=== PATIENT | male | born 1955 | race Caucasian/White ===

== ENCOUNTER 2017-06-24 18:03 | Emergency (ER) | payer SELFPAY ==
[~2017-06-24] VITALS: Ht 175.3 cm; Wt 75.0 kg
[~2017-06-24 18:03] MED LIST: Z.0.NO CURRENT MEDS
[2017-06-24 18:26] VITALS: BP 154/97; PULSE 62; RESP 12; TEMP 98.7; O2SAT 96
--- NOTE | 2017-06-24 18:50 | PD ---
HPI Chief Complaint: Cold / Flu Symptoms Time Seen by Provider: 18:50 Travel History International Travel<30 days: No Contact w/Intl Traveler<30days: No Traveled to known affect area: No History of Present Illness HPI 62-year-old male came to the emergency room with history of body wide aching and cough. Patient says he thinks he has pneumonia. Patient is homeless and apparently has been sleeping outside and started getting sick. She take it anymore and hence came here today. Vital signs are relatively stable as done in triage. Patient appears to be in moderate distress post answering questions appropriately. He says the pain is everywhere and when he coughs he brings out yellowish colored sputum that is small in quantity. He says the sputum looks like pus. Patient has not had any alcohol in past 1 week. He is a smoker. He appears to be disheveled and poor hygiene. He says he vomited this morning but since then he has been drinking and kept fluids down. [facility] Past Medical History Narrative Medical List of his past medical, surgical, social and family history is reviewed from the nursing note. Social History Alcohol Use: No Tobacco Use: Yes (1 PPD) Substance Use: No Allergies-Medications (Allergen,Severity, Reaction): Coded Allergies: No Known Allergies (Verified Allergy, Mild, 08/15/07) Comments No known drug allergies. Reported Meds & Prescriptions Reported Meds & Active Scripts Active Amoxicillin 500 Mg Cap 500 Mg PO BID 10 Days Reported No Current Meds (Miscellaneous Medication) Misc Narrative Medication List of his home medications reviewed from the nursing note. Review of Systems Except as stated in HPI: all other systems reviewed are Neg Respiratory: Positive: Cough Gastrointestinal: Positive: Vomiting Musculoskeletal: Positive: Myalgias Physical Exam Narrative GENERAL: Awake, alert, moderate distress SKIN: Focused skin assessment warm/dry. Poor skin hygiene, disheveled HEAD: Atraumatic. Normocephalic. EYES: Pupils equal and round. No scleral icterus. No injection or drainage. ENT: No nasal bleeding or discharge. Mucous membranes pink and moist. NECK: Trachea midline. No JVD. CARDIOVASCULAR: Regular rate and rhythm. No murmur appreciated. RESPIRATORY: No accessory muscle use. Clear to auscultation. Breath sounds equal bilaterally. GASTROINTESTINAL: Abdomen soft, non-tender, nondistended. Hepatic and splenic margins not palpable. MUSCULOSKELETAL: No obvious deformities. No clubbing. No cyanosis. No edema. NEUROLOGICAL: Awake and alert. No obvious cranial nerve deficits. Motor grossly within normal limits. Normal speech. PSYCHIATRIC: Appropriate mood and affect; insight and judgment normal. Data Data Last Documented VS Vital Signs Date Time Temp Pulse Resp B/P (MAP) Pulse Ox O2 Delivery O2 Flow Rate FiO2 06/24/17 18:26 98.7 62 12 154/97 (116) 96 Orders Orders Complete Blood Count With Diff (06/24/17 18:53) Comprehensive Metabolic Panel (06/24/17 18:53) Creatine Kinase (Cpk) (06/24/17 18:53) Influenzae A/B Antigen (06/24/17 18:53) Chest, Pa & Lat (06/24/17 ) CKMB (06/24/17 18:20) CKMB% (06/24/17 18:20) Sodium Chlor 0.9% 1000 Ml Inj (Ns 1000 M (06/24/17 20:30) Azithromycin Inj (Zithromax Inj) (06/24/17 20:30) Ed Discharge Order (06/24/17 21:13) Labs Laboratory Tests Test 06/24/17 18:20 White Blood Count 5.9 TH/MM3 Red Blood Count 4.77 MIL/MM3 Hemoglobin 16.6 GM/DL Hematocrit 46.7 % Mean Corpuscular Volume 98.0 FL Mean Corpuscular Hemoglobin 34.8 PG Mean Corpuscular Hemoglobin Concent 35.5 % Red Cell Distribution Width 11.6 % Platelet Count 121 TH/MM3 Mean Platelet Volume 8.5 FL Neutrophils (%) (Auto) 64.6 % Lymphocytes (%) (Auto) 14.7 % Monocytes (%) (Auto) 17.5 % Eosinophils (%) (Auto) 2.6 % Basophils (%) (Auto) 0.6 % Neutrophils # (Auto) 3.8 TH/MM3 Lymphocytes # (Auto) 0.9 TH/MM3 Monocytes # (Auto) 1.0 TH/MM3 Eosinophils # (Auto) 0.2 TH/MM3 Basophils # (Auto) 0.0 TH/MM3 CBC Comment DIFF FINAL Differential Comment Blood Urea Nitrogen 5 MG/DL Creatinine 0.78 MG/DL Random Glucose 92 MG/DL Total Protein 8.5 GM/DL Albumin 3.5 GM/DL Calcium Level 8.6 MG/DL Alkaline Phosphatase 52 U/L Aspartate Amino Transf (AST/SGOT) 67 U/L Alanine Aminotransferase (ALT/SGPT) 42 U/L Total Bilirubin 0.7 MG/DL Sodium Level 129 MEQ/L Potassium Level 3.7 MEQ/L Chloride Level 93 MEQ/L Carbon Dioxide Level 28.6 MEQ/L Anion Gap 7 MEQ/L Estimat Glomerular Filtration Rate 102 ML/MIN Total Creatine Kinase 476 U/L Creatine Kinase MB 2.3 NG/ML Creatine Kinase MB % 0.5 % MDM Medical Decision Making Medical Screen Exam Complete: Yes Emergency Medical Condition: Yes Medical Record Reviewed: Yes Differential Diagnosis Viral illness, pneumonia, influenza Narrative Course 7:21 PM awaiting for the blood test results and the influenza. I've ordered a chest x-ray as well. 9:10 PM blood test results of back and patient has mild hyponatremia and somewhat elevated CPK. He is getting a liter of IV fluid bolus. He was given by mouth challenge which she has tolerated well. Chest x-ray suggestive of bronchitis. I've given him a dose of IV Zithromax and I will discharge him home on antibiotic prescription. Patient being homeless and no insurance I'll discharge him home on amoxicillin prescription since that's free in [facility] pharmacy. Procedures EKG Prior to Arrival: No Diagnosis Primary Impression: Bronchitis Additional Impression: Hyponatremia Referrals: Primary Care Physician Additional Instructions: Please return to the ER if the condition worsens or any other new concerns. Take the medication as per the prescription direction. You should not smoke cigarettes or anything else since it would make your lung condition worse. Med/Other Pt SpecificInfo: Prescription(s) given Scripts Amoxicillin (Amoxicillin) 500 Mg Cap 500 MG PO BID for Infection for 10 Days, #20 CAP 0 Refills Prov: Umm Bocanegra MD 06/24/17 Disposition: 01 DISCHARGE HOME Condition: Stable Umm Bocanegra MD Jun 24, 2017 18:50
[2017-06-24 19:47] LABS: AUTOMATED NEUTROPHIL # 3.8 TH/MM3 (1.8-7.7); BASOPHIL % 0.6 % (0.0-2.0); EOSINOPHIL # 0.2 TH/MM3 (0-0.4); EOSINOPHIL % 2.6 % (0.0-4.0); HEMATOCRIT 46.7 % (39.0-51.0); HEMOGLOBIN 16.6 GM/DL (13.0-17.0); LYMPH % 14.7 % (9.0-44.0); LYMPHOCYTE # 0.9 TH/MM3 (1.0-4.8); MEAN CORPUSCULAR HEMOGLOBIN 34.8 PG (27.0-34.0); MEAN CORPUSCULAR HGB CONC 35.5 % (32.0-36.0); MEAN PLATELET VOLUME 8.5 FL (7.0-11.0); MONO % 17.5 % (0.0-8.0); NEUT % 64.6 % (16.0-70.0); PLATELET COUNT 121 TH/MM3 (150-450); RED BLOOD COUNT 4.77 MIL/MM3 (4.50-5.90); RED CELL DISTRIBUTION WIDTH 11.6 % (11.6-17.2); WHITE BLOOD COUNT 5.9 TH/MM3 (4.0-11.0)
--- NOTE | 2017-06-24 19:48 | RADRPT ---
EXAM DATE/TIME: 06/24/2017 19:32 [facility] COMPARISON: No previous studies available for comparison. INDICATIONS : Flu like symptoms. Cough. MEDICAL HISTORY : None. SURGICAL HISTORY : None. ENCOUNTER: Initial ACUITY: 3 days PAIN SCORE: 6/10 LOCATION: Bilateral chest FINDINGS: PA and lateral views of the chest demonstrate the lungs to be symmetrically aerated without evidence of mass, infiltrate or effusion. Peribronchial thickening is present. The cardiomediastinal contours are unremarkable. Osseous structures are intact. CONCLUSION: 1. Peribronchial thickening most characteristic of a bronchitis. No focal dense consolidation. Luis Dainel Platt MD on June 24, 2017 at 19:45 Board Certified Radiologist. This report was verified electronically.
[2017-06-24 19:57] LABS: ALBUMIN 3.5 GM/DL (3.4-5.0); AST (GOT) 67 U/L (15-37); BICARBONATE 28.6 MEQ/L (21.0-32.0); BLOOD UREA NITROGEN 5 MG/DL (7-18); CALCIUM 8.6 MG/DL (8.5-10.1); CHLORIDE 93 MEQ/L (98-107); CREATININE 0.78 MG/DL (0.60-1.30); GLOMERULAR FILTRATION RATE 102 ML/MIN (>89); GLUCOSE,RANDOM 92 MG/DL (74-106); SODIUM (NA) 129 MEQ/L (136-145)
[2017-06-24 19:58] LABS: ALT (GPT) 42 U/L (12-78)
[2017-06-24 20:00] LABS: ALKALINE PHOSPHATASE 52 U/L (45-117); TOTAL BILIRUBIN ADULT 0.7 MG/DL (0.2-1.0); TOTAL PROTEIN 8.5 GM/DL (6.4-8.2)
[2017-06-24] MEDS ORDERED: AZITHROMYCIN INJ 500 MG in SODIUM CHLOR 0.9% 250 ML INJ 250 ML IV SCH (20:30)
[2017-06-24] MEDS ORDERED: SODIUM CHLOR 0.9% 1000 ML INJ 1,000 ML IV ONE (20:30)
[2017-06-24] MEDS ORDERED: AMOX500C PO (21:13)
== END 2017-06-24 23:54 | disposition home or self-care (01) ==
LOC: NEPD 18:03
DX: J40 Bronchitis, not specified as acute or chronic (principal); E87.1 Hypo-osmolality and hyponatremia; F17.210 Nicotine dependence, cigarettes, uncomplicated
CPT/HCPCS: 71020; 80053; 82550; 82552; 85025; 87804; 96365; 96366; 99284; J0456; J7030; J7050